=== PATIENT | male | born 1940 | race African-American/Black ===

== ENCOUNTER 2021-09-17 01:11 | Inpatient (IN) | payer MEDICARE, MEDICAID ==
[2021-09-17] VITALS (8 sets, daily range): BP systolic 125–150; BP diastolic 72–87
[~2021-09-17] VITALS: Ht 175.3 cm; Wt 95.4 kg
[~2021-09-17 01:11] MED LIST: ALLO100T PO; AMLO10TA80 PO; ASPI-1073 PO; CARV12.545 PO; COLC0.6T66 PO; ECOTRIN PO; FURO40TA5 PO; HYDRALAZINE PO; LOSA50TA41 PO; OMEP20CA14 PO; [UNRECOGNIZED DRUG - OTHER]; [UNRECOGNIZED DRUG - OTHER] INH
[2021-09-17] MEDS ORDERED: ASPIRIN 81MG TABLET PO ONE (03:00)
[2021-09-17 04:29] LABS: HEMATOCRIT. 32.1 % (42.0-52.0); HEMOGLOBIN. 10.8 g/dL (14.0-18.0); MEAN CORPUSCULAR HEMOGLOBIN 26.2 pg (28.0-32.0); MEAN CORPUSCULAR VOLUME 77.9 fL (80.0-94.0); MEAN PLATELET VOLUME 11.1 fl (7.4-10.4); PLATELET 130 x1000/uL (130-400); RED BLOOD CELL COUNT 4.11 mill/uL (4.7-6.1); RED CELL DISTRIBUTION WIDTH 16.4 % (11.6-14.6)
[2021-09-17 04:44] LABS: CHLORIDE 100 mEq/L (98-107)
[2021-09-17 04:57] LABS: CREATINE KINASE 261 IU/L (39-308)
[2021-09-17] MEDS ORDERED: PIPERACILLIN/TAZOBACTAM 3.375GM/50ML PREMIX IV SCH (05:45)
[2021-09-17] MEDS ORDERED: VANCOMYCIN 1,000 MG in DEXT 5% WATER 250 ML IV SCH (06:00)
[2021-09-17] MEDS: FUROSEMIDE 40MG/4ML VIAL IVP SCH (06:00)
[2021-09-17 07:14] LABS: PLATELET ESTIMATE NORMAL
[2021-09-17 08:21] LABS: CLARITY URINE CLEAR (CLEAR); COLOR URINE DARK YELLOW (YELLOW); KETONES URINE TRACE (NEGATIVE); LEUKOCYTE ESTERASE URINE 1+ (NEGATIVE); NITRITE URINE NEGATIVE (NEGATIVE); OCCULT BLOOD URINE NEGATIVE (NEGATIVE); PROTEIN URINE 1+ (NEGATIVE)
[2021-09-17] MEDS ORDERED: DIPHENHYDRAMINE 50MG/ML VIAL IV PRN (14:00)
[2021-09-17] MEDS ORDERED: LORAZEPAM 0.5MG TABLET PO PRN (14:00)
[2021-09-17] MEDS ORDERED: ONDANSETRON HCL 4MG/2ML INJ IV PRN (14:00)
[2021-09-17] MEDS ORDERED: NALOXONE HCL 0.4MG/ML VIAL IV PRN (14:00)
[2021-09-17] MEDS ORDERED: PIPERACILLIN/TAZ 3.375G PREMIX 50 ML IV NR (14:00)
[2021-09-17] MEDS ORDERED: ACETAMINOPHEN 650MG SUPP PR PRN (14:00)
[2021-09-17] MEDS ORDERED: MAGNESIUM/ALUMINUM HYDROXIDE/SIMETHICONE 30ML UDC PO PRN (14:00)
[2021-09-17] MEDS ORDERED: HYDROCODONE/ACETAMINOPHEN 5/325MG TABLET PO PRN (14:00)
[2021-09-17] MEDS ORDERED: NA PHOS,M-B/NA PHOS,DI-BA ENEMA 118ML PR PRN (14:00)
[2021-09-17] MEDS ORDERED: DILTIAZEM HCL 5MG/ML 5ML VIAL IV NR (14:00)
[2021-09-17] MEDS ORDERED: DILTIAZEM HCL 125 MG in DEXT 5% WATER 100 ML IV PRN (14:00)
[2021-09-17] MEDS ORDERED: MORPHINE SULFATE 2 MG/ML CPJ (NOT FOR IM USE) IV PRN (14:00)
[2021-09-17] MEDS ORDERED: GUAIFENESIN 200MG/10ML SUGAR FREE UDC PO PRN (14:00)
[2021-09-17] MEDS ORDERED: IPRATROPIUM/ALBUTEROL 0.5-3(2.5)MG/3ML NEB NEB PRN (14:00)
[2021-09-17] MEDS: DILTIAZEM 125MG/125ML PMX 125 ML IV SCH (14:15)
[2021-09-17] MEDS: DEXT 5%/0.9% NACL 1,000 ML IV SCH (14:56)
[2021-09-17] MEDS ORDERED: VANCOMYCIN 1GM PMX (XELLIA) 200 ML IV NR (15:00)
[2021-09-17] MEDS: ENOXAPARIN 120MG/0.8ML SYR SUBCUT SCH (15:14)
[2021-09-17] MEDS: PIPERACILLIN/TAZOBACTAM 3.375 G in DEXTROSE 5% WATER 50 ML IV SCH (16:20)
[2021-09-17] MEDS ORDERED: ALLOPURINOL 100 MG TABLET PO SCH (17:00)
[2021-09-17] MEDS ORDERED: DILTIAZEM HCL 30MG TABLET PO NR (19:15)
[2021-09-17] MEDS ORDERED: DIGOXIN 500MCG/2ML AMP IV NR (19:25)
[2021-09-17] MEDS: ACETAMINOPHEN 325MG TABLET PO PRN (19:59)
[2021-09-17 21:32] LABS: INR 1.2; PROTHROMBIN TIME 12.9 sec (9.6-11.0)
[2021-09-17 21:45] LABS: CREATINE KINASE MB FRACTION 1.9 ng/mL (0.5-3.6)
[2021-09-17] MEDS ORDERED: PIPERACILLIN/TAZOBACTAM 3.375 G in DEXTROSE 5% WATER 50 ML IV SCH (22:00)
[2021-09-17] MEDS: DILTIAZEM HCL 30MG TABLET PO SCH (22:32)
[2021-09-17] MEDS: ALLOPURINOL 100 MG TABLET PO SCH (22:32)
[2021-09-18] VITALS (11 sets, daily range): BP systolic 123–183; BP diastolic 67–110
[2021-09-18] MEDS: PIPERACILLIN/TAZOBACTAM 3.375 G in DEXTROSE 5% WATER 50 ML IV SCH ×4 (01:18→21:42)
[2021-09-18 02:50] LABS: *AMPHETAMINES SCREEN URINE NEGATIVE (NEGATIVE); *BARBITURATES SCREEN URINE NEGATIVE (NEGATIVE); *BENZODIAZEPINES SCREEN URINE NEGATIVE (NEGATIVE)
[2021-09-18 02:51] LABS: *COCAINE SCREEN URINE NEGATIVE (NEGATIVE); CANNABINOID URINE SCREEN NEGATIVE (NEGATIVE); METHADONE URINE SCREEN NEGATIVE (NEGATIVE); OPIATES URINE SCREEN PRESUMTIVE POSITIVE (NEGATIVE); PHENCYCLIDINE URINE SCREEN NEGATIVE (NEGATIVE)
[2021-09-18] MEDS: DEXT 5%/0.9% NACL 1,000 ML IV SCH (04:38)
[2021-09-18] MEDS: DILTIAZEM 125MG/125ML PMX 125 ML IV SCH (04:56)
[2021-09-18] MEDS: DILTIAZEM HCL 30MG TABLET PO SCH ×3 (06:56→21:43)
[2021-09-18] MEDS ORDERED: VANCOMYCIN 1.25GM PMX (XELLIA) 250 ML IV SCH (08:00)
[2021-09-18] MEDS: ALLOPURINOL 100 MG TABLET PO SCH ×2 (08:29→20:08)
[2021-09-18] MEDS: FUROSEMIDE 40MG/4ML VIAL IVP SCH (08:29)
[2021-09-18] MEDS: ASPIRIN 81MG EC TABLET PO SCH (08:30)
[2021-09-18] MEDS ORDERED: ASPIRIN 81MG EC TABLET PO SCH (09:00)
[2021-09-18 09:13] LABS: BASOPHILS % 0.6 % (0.0-2.0); EOSINOPHILS % 1.5 % (0.0-5.0); HEMATOCRIT. 31.3 % (42.0-52.0); HEMOGLOBIN. 10.5 g/dL (14.0-18.0); LYMPHOCYTES % 8.1 % (20.0-50.0); MEAN CORPUSCULAR VOLUME 77.5 fL (80.0-94.0); MEAN PLATELET VOLUME 10.6 fl (7.4-10.4); MONOCYTES % 6.9 % (2.0-8.0); NEUTROPHILS % 82.9 % (40.0-76.0); PLATELET 174 x1000/uL (130-400); RED BLOOD CELL COUNT 4.03 mill/uL (4.7-6.1); RED CELL DISTRIBUTION WIDTH 16.1 % (11.6-14.6)
[2021-09-18 09:14] LABS: INR 1.2; PROTHROMBIN TIME 12.4 sec (9.6-11.0)
[2021-09-18 09:22] LABS: CHLORIDE 102 mEq/L (98-107)
[2021-09-18 09:38] LABS: CREATINE KINASE 265 IU/L (39-308)
[2021-09-18 09:40] LABS: LDL CHOLESTEROL 38 mg/dL (5-100)
[2021-09-18 09:41] LABS: CREATINE KINASE MB FRACTION 1.6 ng/mL (0.5-3.6); HDL CHOLESTEROL 10 mg/dL (40-59)
[2021-09-18 11:29] LABS: BASOPHILS % 0.4 % (0.0-2.0); EOSINOPHILS % 1.7 % (0.0-5.0); HEMATOCRIT. 30.8 % (42.0-52.0); HEMOGLOBIN. 10.3 g/dL (14.0-18.0); LYMPHOCYTES % 7.7 % (20.0-50.0); MEAN CORPUSCULAR HEMOGLOBIN 25.6 pg (28.0-32.0); MEAN CORPUSCULAR VOLUME 76.8 fL (80.0-94.0); MEAN PLATELET VOLUME 10.1 fl (7.4-10.4); MONOCYTES % 6.5 % (2.0-8.0); NEUTROPHILS % 83.7 % (40.0-76.0); PLATELET 200 x1000/uL (130-400); RED BLOOD CELL COUNT 4.01 mill/uL (4.7-6.1)
[2021-09-18 11:48] LABS: CHLORIDE 101 mEq/L (98-107)
[2021-09-18] MEDS: ACETAMINOPHEN 325MG TABLET PO PRN (12:48)
[2021-09-18] MEDS ORDERED: POTASSIUM CHLORIDE 20MEQ TABLET SR PO NR (13:15)
[2021-09-18 13:34] LABS: BG BASE EXCESS 2.7 mmol/L (-2.0-2.0); BG CARBOXYHEMOGLOBIN 0.1 % (0.5-1.5); BG FRACTION INSPIRED OXYGEN 21; BG HCO3 ACT 25.4 mmol/L (22.0-26.0); BG METHEMOGLOBIN 0.2 % (0.0-1.5); BG OXYHEMOGLOBIN 93.7 % (94.0-97.0); BG PCO2 32.6 mmHg (35.0-45.0); BG PO2 66.2 mmHg (75.0-100.0); BG TOTAL HEMOGLOBIN 11.4 g/dL (12.0-18.0); BG VENT MODE ROOM AIR
[2021-09-18] MEDS: ENOXAPARIN 120MG/0.8ML SYR SUBCUT SCH (14:38)
[2021-09-18] MEDS ORDERED: CARVEDILOL 3.125 MG TABLET PO NR (15:00)
[2021-09-18] MEDS: ENOXAPARIN 100MG/ML SYR SUBCUT SCH (17:49)
[2021-09-18] MEDS: LOSARTAN POTASSIUM 25 MG TABLET PO SCH (18:07)
[2021-09-18] MEDS: CARVEDILOL 3.125 MG TABLET PO SCH (20:09)
[2021-09-18] MEDS ORDERED: VANCOMYCIN 1GM PMX (XELLIA) 200 ML IV NR (21:00)
[2021-09-19] VITALS (13 sets, daily range): BP systolic 112–168; BP diastolic 61–122
[2021-09-19] MEDS: PIPERACILLIN/TAZOBACTAM 3.375 G in DEXTROSE 5% WATER 50 ML IV SCH ×3 (05:33→21:11)
[2021-09-19] MEDS: ENOXAPARIN 100MG/ML SYR SUBCUT SCH ×2 (05:34→17:27)
[2021-09-19] MEDS: DILTIAZEM HCL 30MG TABLET PO SCH ×3 (05:35→21:10)
[2021-09-19 06:27] LABS: HEMATOCRIT. 30.2 % (42.0-52.0); HEMOGLOBIN. 10.1 g/dL (14.0-18.0); MEAN CORPUSCULAR HEMOGLOBIN 25.5 pg (28.0-32.0); MEAN PLATELET VOLUME 9.6 fl (7.4-10.4); PLATELET 231 x1000/uL (130-400); RED BLOOD CELL COUNT 3.97 mill/uL (4.7-6.1); RED CELL DISTRIBUTION WIDTH 16.2 % (11.6-14.6)
[2021-09-19] MEDS: ASPIRIN 81MG EC TABLET PO SCH (08:54)
[2021-09-19] MEDS: LOSARTAN POTASSIUM 25 MG TABLET PO SCH (08:54)
[2021-09-19] MEDS: ALLOPURINOL 100 MG TABLET PO SCH ×2 (08:54→21:09)
[2021-09-19] MEDS: CARVEDILOL 3.125 MG TABLET PO SCH (08:56)
[2021-09-19] MEDS: FUROSEMIDE 40MG/4ML VIAL IVP SCH (08:57)
[2021-09-19] MEDS ORDERED: POTASSIUM CHLORIDE 20MEQ TABLET SR PO SCH (10:15)
[2021-09-19] MEDS: VANCOMYCIN 1GM PMX (XELLIA) 200 ML IV SCH (13:47)
[2021-09-19] MEDS ORDERED: CARVEDILOL 3.125 MG TABLET PO NR (15:30)
[2021-09-19 20:25] LABS: PLATELET ESTIMATE NORMAL
[2021-09-19] MEDS: ACETAMINOPHEN 325MG TABLET PO PRN (21:09)
[2021-09-19] MEDS: CARVEDILOL 6.25 MG TABLET PO SCH (21:10)
[2021-09-20] VITALS (11 sets, daily range): BP systolic 127–164; BP diastolic 77–100
[2021-09-20] MEDS: PIPERACILLIN/TAZOBACTAM 3.375 G in DEXTROSE 5% WATER 50 ML IV SCH ×3 (05:01→22:46)
[2021-09-20] MEDS: ENOXAPARIN 100MG/ML SYR SUBCUT SCH ×2 (05:01→18:47)
[2021-09-20] MEDS: DILTIAZEM HCL 30MG TABLET PO SCH ×3 (05:02→21:50)
[2021-09-20 06:02] LABS: HEMOGLOBIN. 10.8 g/dL (14.0-18.0); MEAN CORPUSCULAR HEMOGLOBIN 25.6 pg (28.0-32.0); MEAN CORPUSCULAR VOLUME 75.8 fL (80.0-94.0); MEAN PLATELET VOLUME 9.4 fl (7.4-10.4); PLATELET 271 x1000/uL (130-400); RED BLOOD CELL COUNT 4.23 mill/uL (4.7-6.1); RED CELL DISTRIBUTION WIDTH 16.4 % (11.6-14.6)
[2021-09-20] MEDS: ALLOPURINOL 100 MG TABLET PO SCH ×2 (08:46→21:17)
[2021-09-20] MEDS: LOSARTAN POTASSIUM 25 MG TABLET PO SCH (08:46)
[2021-09-20] MEDS: ASPIRIN 81MG EC TABLET PO SCH (08:46)
[2021-09-20] MEDS: FUROSEMIDE 40MG/4ML VIAL IVP SCH (08:46)
[2021-09-20] MEDS: CARVEDILOL 6.25 MG TABLET PO SCH ×2 (08:46→21:17)
[2021-09-20] MEDS: VANCOMYCIN 1GM PMX (XELLIA) 200 ML IV SCH (08:46)
[2021-09-20 16:48] LABS: PLATELET ESTIMATE NORMAL
[2021-09-21] VITALS: BP 130/66
[2021-09-21] MEDS: VANCOMYCIN 1GM PMX (XELLIA) 200 ML IV SCH ×2 (01:52→20:55)
[2021-09-21 04:00] VITALS: BP 159/82
[2021-09-21] MEDS: PIPERACILLIN/TAZOBACTAM 3.375 G in DEXTROSE 5% WATER 50 ML IV SCH ×2 (06:07→16:06)
[2021-09-21] MEDS: DILTIAZEM HCL 30MG TABLET PO SCH ×3 (06:08→22:20)
[2021-09-21] MEDS: ENOXAPARIN 100MG/ML SYR SUBCUT SCH (06:10)
[2021-09-21 08:00] VITALS: BP 149/87
[2021-09-21] MEDS: FUROSEMIDE 40MG/4ML VIAL IVP SCH (11:01)
[2021-09-21] MEDS: ASPIRIN 81MG EC TABLET PO SCH (11:01)
[2021-09-21] MEDS: CARVEDILOL 6.25 MG TABLET PO SCH ×2 (11:01→20:35)
[2021-09-21] MEDS: LOSARTAN POTASSIUM 25 MG TABLET PO SCH (11:01)
[2021-09-21] MEDS: ALLOPURINOL 100 MG TABLET PO SCH ×2 (11:02→20:55)
[2021-09-21 12:00] VITALS: BP 149/72
[2021-09-21 12:38] LABS: BASOPHILS % 0.5 % (0.0-2.0); EOSINOPHILS % 1.2 % (0.0-5.0); HEMATOCRIT. 30.2 % (42.0-52.0); HEMOGLOBIN. 10.1 g/dL (14.0-18.0); LYMPHOCYTES % 11.2 % (20.0-50.0); MEAN CORPUSCULAR HEMOGLOBIN 25.4 pg (28.0-32.0); MEAN CORPUSCULAR VOLUME 76.4 fL (80.0-94.0); MEAN PLATELET VOLUME 9.3 fl (7.4-10.4); MONOCYTES % 8.7 % (2.0-8.0); NEUTROPHILS % 78.4 % (40.0-76.0); PLATELET 298 x1000/uL (130-400); RED BLOOD CELL COUNT 3.95 mill/uL (4.7-6.1)
[2021-09-21 16:00] VITALS: BP 140/50
[2021-09-21 20:00] VITALS: BP 149/79
[2021-09-21] MEDS: CEFTRIAXONE 1,000 MG in DEXTROSE 5% WATER 50 ML IV SCH (22:21)
[2021-09-22] VITALS (43 sets, daily range): BP systolic 83–185; BP diastolic 44–102
[2021-09-22] MEDS: DILTIAZEM HCL 30MG TABLET PO SCH ×3 (06:00→21:18)
[2021-09-22 06:13] LABS: HEMATOCRIT. 31.9 % (42.0-52.0); HEMOGLOBIN. 10.9 g/dL (14.0-18.0); MEAN CORPUSCULAR HEMOGLOBIN 25.9 pg (28.0-32.0); MEAN PLATELET VOLUME 9.4 fl (7.4-10.4); PLATELET 336 x1000/uL (130-400); RED CELL DISTRIBUTION WIDTH 15.9 % (11.6-14.6)
[2021-09-22] MEDS: HYDRALAZINE 20MG/ML VIAL IV PRN (06:14)
[2021-09-22] MEDS: FUROSEMIDE 40MG/4ML VIAL IVP SCH (08:20)
[2021-09-22] MEDS: CARVEDILOL 6.25 MG TABLET PO SCH ×2 (08:20→21:20)
[2021-09-22] MEDS: LOSARTAN POTASSIUM 25 MG TABLET PO SCH (08:20)
[2021-09-22] MEDS ORDERED: GENTAMICIN SULF 40MG/ML 2ML VIAL ONE (09:00)
[2021-09-22] MEDS ORDERED: BACITRACIN 15GM TUBE TOP ONE (09:01)
[2021-09-22] MEDS ORDERED: THROMBIN (BOVINE) 5000 UNITS/VIAL TOP ONE (09:01)
[2021-09-22] MEDS ORDERED: LIDOCAINE HCL/EPINEPHRINE 1%-EPI 1:100,000 30 ML VIAL INFIL ONE (09:01)
[2021-09-22] MEDS ORDERED: ALBUMIN HUMAN 25GM/100ML (25%) IV ONE (10:57)
[2021-09-22] MEDS ORDERED: HYDROMORPHONE HCL/PF 2MG/ML (OR) ONE (11:21)
[2021-09-22] MEDS ORDERED: HYDRALAZINE 20MG/ML VIAL ONE ×2 (11:23→12:28)
[2021-09-22] MEDS ORDERED: DEXAMETHASONE 4MG/ML 1ML VIAL ONE (11:39)
[2021-09-22] MEDS ORDERED: PROPOFOL 10MG/ML 100ML 100 ML IV ONE (12:02)
[2021-09-22] MEDS ORDERED: POTASSIUM CHLORIDE INJ 40 MEQ in DEXT 5% WATER 250 ML IV ONE (12:45)
[2021-09-22] MEDS: DEXT 5%/LACTATED RINGERS 1,000 ML IV SCH ×2 (12:45→21:20)
[2021-09-22] MEDS: PROPOFOL 10MG/ML 100ML 100 ML IV PRN ×2 (12:50→15:51)
[2021-09-22] MEDS: NICARDIPINE 100 MG in SODIUM CHLORIDE 0.9% 60 ML IV PRN (13:15)
[2021-09-22 13:34] LABS: BG BASE EXCESS -3.6 mmol/L (-2.0-2.0); BG CARBOXYHEMOGLOBIN 0.3 % (0.5-1.5); BG DEOXYHEMOGLOBIN 1.2 % (0.0-5.0); BG FRACTION INSPIRED OXYGEN 65; BG HCO3 ACT 20.8 mmol/L (22.0-26.0); BG METHEMOGLOBIN 0.3 % (0.0-1.5); BG OXYGEN SATURATION 98.8 % (92.0-98.5); BG OXYHEMOGLOBIN 98.2 % (94.0-97.0); BG PCO2 35.1 mmHg (35.0-45.0); BG PH 7.391 (7.350-7.450); BG PO2 203.8 mmHg (75.0-100.0); BG SAMPLE SITE ALINE; BG TOTAL HEMOGLOBIN 10.2 g/dL (12.0-18.0); BG VENT MODE VENT - AC
[2021-09-22] MEDS: KCL 20MEQ/100ML X 2 FOR TOTAL KCL 40MEQ/200ML IV SCH ×2 (13:56→15:50)
[2021-09-22] MEDS: VANCOMYCIN 1GM PMX (XELLIA) 200 ML IV SCH (14:00)
[2021-09-22 14:57] LABS: NUCLEATED RED BLOOD CELLS 1 /100 WBC
[2021-09-22 14:58] LABS: PLATELET ESTIMATE NORMAL
[2021-09-22] MEDS: DEXAMETHASONE 4MG/ML 1ML VIAL IV SCH ×2 (18:04→23:01)
[2021-09-22] MEDS: CEFTRIAXONE 1,000 MG in DEXTROSE 5% WATER 50 ML IV SCH (22:23)
[2021-09-23] VITALS (100 sets, daily range): BP systolic 72–174; BP diastolic 41–117
[2021-09-23] MEDS: DEXAMETHASONE 4MG/ML 1ML VIAL IV SCH ×2 (05:13→13:50)
[2021-09-23] MEDS: DILTIAZEM HCL 30MG TABLET PO SCH ×3 (05:14→22:10)
[2021-09-23] MEDS: PROPOFOL 10MG/ML 100ML 100 ML IV PRN (05:16)
[2021-09-23] MEDS: NICARDIPINE 100 MG in SODIUM CHLORIDE 0.9% 60 ML IV PRN (05:17)
[2021-09-23] MEDS: DEXT 5%/LACTATED RINGERS 1,000 ML IV SCH ×2 (05:18→17:08)
[2021-09-23 05:41] LABS: MEAN CORPUSCULAR VOLUME 77.8 fL (80.0-94.0); MEAN PLATELET VOLUME 9.6 fl (7.4-10.4); PLATELET 306 x1000/uL (130-400); RED BLOOD CELL COUNT 3.99 mill/uL (4.7-6.1); RED CELL DISTRIBUTION WIDTH 16.4 % (11.6-14.6)
[2021-09-23 06:12] LABS: CHLORIDE 104 mEq/L (98-107)
[2021-09-23 08:29] LABS: BG BASE EXCESS -0.6 mmol/L (-2.0-2.0); BG DEOXYHEMOGLOBIN 2.6 % (0.0-5.0); BG HCO3 ACT 22.4 mmol/L (22.0-26.0); BG METHEMOGLOBIN 0.3 % (0.0-1.5); BG OXYGEN SATURATION 97.4 % (92.0-98.5); BG OXYHEMOGLOBIN 97.1 % (94.0-97.0); BG PCO2 31.4 mmHg (35.0-45.0); BG PH 7.471 (7.350-7.450); BG PO2 94.3 mmHg (75.0-100.0); BG SAMPLE SITE ALINE; BG TOTAL HEMOGLOBIN 11.1 g/dL (12.0-18.0); BG VENT MODE VENT - AC
[2021-09-23] MEDS: CARVEDILOL 6.25 MG TABLET PO SCH ×2 (09:06→21:27)
[2021-09-23] MEDS: FUROSEMIDE 40MG/4ML VIAL IVP SCH (09:06)
[2021-09-23] MEDS: LOSARTAN POTASSIUM 25 MG TABLET PO SCH (09:08)
[2021-09-23] MEDS: VANCOMYCIN 1GM PMX (XELLIA) 200 ML IV SCH (09:52)
[2021-09-23] MEDS ORDERED: PROPOFOL 10MG/ML 100ML 100 ML IV PRN (13:00)
[2021-09-23 16:16] LABS: PLATELET ESTIMATE NORMAL
[2021-09-23] MEDS: CEFTRIAXONE 1,000 MG in DEXTROSE 5% WATER 50 ML IV SCH (22:09)
[2021-09-24] VITALS (93 sets, daily range): BP systolic 76–156; BP diastolic 41–76
[2021-09-24] MEDS: DEXT 5%/LACTATED RINGERS 1,000 ML IV SCH ×3 (01:43→21:14)
[2021-09-24] MEDS: NICARDIPINE 100 MG in SODIUM CHLORIDE 0.9% 60 ML IV PRN ×3 (02:28→14:55)
[2021-09-24] MEDS: DILTIAZEM HCL 30MG TABLET PO SCH ×3 (06:00→22:00)
[2021-09-24 06:02] LABS: HEMATOCRIT. 30.2 % (42.0-52.0); HEMOGLOBIN. 9.9 g/dL (14.0-18.0); MEAN CORPUSCULAR HEMOGLOBIN 25.4 pg (28.0-32.0); MEAN CORPUSCULAR VOLUME 77.8 fL (80.0-94.0); MEAN PLATELET VOLUME 9.5 fl (7.4-10.4); PLATELET 383 x1000/uL (130-400); RED BLOOD CELL COUNT 3.89 mill/uL (4.7-6.1); RED CELL DISTRIBUTION WIDTH 16.3 % (11.6-14.6)
[2021-09-24 06:12] LABS: CHLORIDE 106 mEq/L (98-107)
[2021-09-24] MEDS: CARVEDILOL 6.25 MG TABLET PO SCH ×2 (08:58→21:15)
[2021-09-24] MEDS: LOSARTAN POTASSIUM 25 MG TABLET PO SCH (09:20)
[2021-09-24] MEDS: FUROSEMIDE 40MG/4ML VIAL IVP SCH (09:20)
[2021-09-24 09:53] LABS: BG BASE EXCESS -0.4 mmol/L (-2.0-2.0); BG CARBOXYHEMOGLOBIN 0.3 % (0.5-1.5); BG DEOXYHEMOGLOBIN 1.4 % (0.0-5.0); BG FRACTION INSPIRED OXYGEN 40; BG HCO3 ACT 22.4 mmol/L (22.0-26.0); BG METHEMOGLOBIN 0.4 % (0.0-1.5); BG OXYGEN SATURATION 98.6 % (92.0-98.5); BG OXYHEMOGLOBIN 97.9 % (94.0-97.0); BG PCO2 30.3 mmHg (35.0-45.0); BG PH 7.486 (7.350-7.450); BG PO2 120.4 mmHg (75.0-100.0); BG SAMPLE SITE ALINE; BG TOTAL HEMOGLOBIN 10.8 g/dL (12.0-18.0); BG VENT MODE VENT - CPAP
[2021-09-24] MEDS: VANCOMYCIN 1GM PMX (XELLIA) 200 ML IV SCH (10:48)
[2021-09-24 11:44] LABS: PLATELET ESTIMATE NORMAL
[2021-09-24] MEDS: HYDRALAZINE HCL 25MG TABLET NG SCH ×2 (13:12→21:22)
[2021-09-24] MEDS: HYDRALAZINE 20MG/ML VIAL IV PRN (13:12)
[2021-09-24 13:57] LABS: BG BASE EXCESS 0.6 mmol/L (-2.0-2.0); BG CARBOXYHEMOGLOBIN 0.6 % (0.5-1.5); BG DEOXYHEMOGLOBIN 2.3 % (0.0-5.0); BG FRACTION INSPIRED OXYGEN 28; BG METHEMOGLOBIN 0.1 % (0.0-1.5); BG OXYGEN SATURATION 97.7 % (92.0-98.5); BG PCO2 29.9 mmHg (35.0-45.0); BG PH 7.504 (7.350-7.450); BG PO2 117.3 mmHg (75.0-100.0); BG SAMPLE SITE LEFT RADIAL; BG TOTAL HEMOGLOBIN 11.4 g/dL (12.0-18.0); BG VENT MODE COOL AEROSOL
[2021-09-24] MEDS: LOSARTAN POTASSIUM 25 MG TABLET NG SCH (16:38)
[2021-09-24] MEDS: MORPHINE SULFATE 2 MG/ML CPJ (NOT FOR IM USE) IV PRN (18:29)
[2021-09-24] MEDS: CEFTRIAXONE 1,000 MG in DEXTROSE 5% WATER 50 ML IV SCH (21:17)
[2021-09-25] VITALS (97 sets, daily range): BP systolic 105–167; BP diastolic 52–79
[2021-09-25] MEDS: MORPHINE SULFATE 2 MG/ML CPJ (NOT FOR IM USE) IV PRN ×5 (00:59→22:40)
[2021-09-25] MEDS: NICARDIPINE 100 MG in SODIUM CHLORIDE 0.9% 60 ML IV PRN (03:33)
[2021-09-25] MEDS: HYDRALAZINE 20MG/ML VIAL IV PRN ×2 (03:35→17:57)
[2021-09-25] MEDS: VANCOMYCIN 1GM PMX (XELLIA) 200 ML IV SCH ×2 (04:58→22:00)
[2021-09-25] MEDS: HYDRALAZINE HCL 25MG TABLET NG SCH (05:00)
[2021-09-25] MEDS: DEXT 5%/LACTATED RINGERS 1,000 ML IV SCH ×2 (05:01→13:15)
[2021-09-25 05:27] LABS: CHLORIDE 107 mEq/L (98-107); HEMATOCRIT. 32.7 % (42.0-52.0); HEMOGLOBIN. 10.7 g/dL (14.0-18.0); MEAN CORPUSCULAR HEMOGLOBIN 25.3 pg (28.0-32.0); MEAN CORPUSCULAR VOLUME 77.5 fL (80.0-94.0); MEAN PLATELET VOLUME 8.7 fl (7.4-10.4); PLATELET 458 x1000/uL (130-400); RED BLOOD CELL COUNT 4.22 mill/uL (4.7-6.1); RED CELL DISTRIBUTION WIDTH 16.5 % (11.6-14.6)
[2021-09-25] MEDS: DILTIAZEM HCL 30MG TABLET PO SCH ×3 (06:00→21:59)
[2021-09-25 08:05] LABS: PLATELET ESTIMATE NORMAL
[2021-09-25] MEDS: CARVEDILOL 6.25 MG TABLET PO SCH ×2 (08:26→20:13)
[2021-09-25] MEDS: LOSARTAN POTASSIUM 25 MG TABLET NG SCH ×2 (08:26→16:51)
[2021-09-25] MEDS: FUROSEMIDE 40MG/4ML VIAL IVP SCH (08:26)
[2021-09-25 08:27] LABS: BG BASE EXCESS 1.2 mmol/L (-2.0-2.0); BG CARBOXYHEMOGLOBIN 0.4 % (0.5-1.5); BG DEOXYHEMOGLOBIN 5.5 % (0.0-5.0); BG HCO3 ACT 24.8 mmol/L (22.0-26.0); BG METHEMOGLOBIN 0.2 % (0.0-1.5); BG OXYGEN SATURATION 94.5 % (92.0-98.5); BG OXYHEMOGLOBIN 93.9 % (94.0-97.0); BG PCO2 35.8 mmHg (35.0-45.0); BG PH 7.459 (7.350-7.450); BG PO2 68.7 mmHg (75.0-100.0); BG SAMPLE SITE RIGHT RADIAL; BG TOTAL HEMOGLOBIN 11.6 g/dL (12.0-18.0); BG VENT MODE ROOM AIR
[2021-09-25] MEDS: HYDRALAZINE HCL 50MG TABLET NG SCH ×2 (13:15→21:09)
[2021-09-25] MEDS: CEFTRIAXONE 1,000 MG in DEXTROSE 5% WATER 50 ML IV SCH (21:09)
[2021-09-26] VITALS (83 sets, daily range): BP systolic 103–176; BP diastolic 53–87
[2021-09-26] MEDS: HYDRALAZINE 20MG/ML VIAL IV PRN ×2 (01:18→16:51)
[2021-09-26] MEDS: DEXT 5%/LACTATED RINGERS 1,000 ML IV SCH ×2 (02:24→15:40)
[2021-09-26] MEDS: DILTIAZEM HCL 30MG TABLET PO SCH ×4 (05:32→22:13)
[2021-09-26] MEDS: HYDRALAZINE HCL 50MG TABLET NG SCH ×3 (05:32→22:14)
[2021-09-26 05:52] LABS: BASOPHILS % 0.1 % (0.0-2.0); EOSINOPHILS % 0.5 % (0.0-5.0); HEMATOCRIT. 35.5 % (42.0-52.0); HEMOGLOBIN. 11.6 g/dL (14.0-18.0); LYMPHOCYTES % 7.9 % (20.0-50.0); MEAN CORPUSCULAR HEMOGLOBIN 25.4 pg (28.0-32.0); MEAN CORPUSCULAR VOLUME 78.1 fL (80.0-94.0); MEAN PLATELET VOLUME 8.5 fl (7.4-10.4); MONOCYTES % 10.3 % (2.0-8.0); NEUTROPHILS % 81.2 % (40.0-76.0); PLATELET 520 x1000/uL (130-400); RED BLOOD CELL COUNT 4.55 mill/uL (4.7-6.1); RED CELL DISTRIBUTION WIDTH 17.1 % (11.6-14.6)
[2021-09-26] MEDS: NICARDIPINE 100 MG in SODIUM CHLORIDE 0.9% 60 ML IV PRN (05:53)
[2021-09-26] MEDS: MORPHINE SULFATE 2 MG/ML CPJ (NOT FOR IM USE) IV PRN ×3 (05:56→19:42)
[2021-09-26 05:59] LABS: CHLORIDE 106 mEq/L (98-107)
[2021-09-26] MEDS: FUROSEMIDE 40MG/4ML VIAL IVP SCH (08:44)
[2021-09-26] MEDS: LOSARTAN POTASSIUM 25 MG TABLET NG SCH (08:44)
[2021-09-26] MEDS: CARVEDILOL 6.25 MG TABLET PO SCH (08:45)
[2021-09-26] MEDS ORDERED: HYDRALAZINE 20MG/ML VIAL IV SCH (12:00)
[2021-09-26] MEDS ORDERED: CLONIDINE HCL 0.2MG/24HR PATCH TD SCH (15:15)
[2021-09-26] MEDS: VANCOMYCIN 1GM PMX (XELLIA) 200 ML IV SCH (16:41)
[2021-09-26] MEDS: DOCUSATE SODIUM 100MG CAPSULE PO PRN (16:41)
[2021-09-26] MEDS: LOSARTAN POTASSIUM 50 MG TABLET NG SCH (16:42)
[2021-09-26] MEDS: CARVEDILOL 12.5MG TABLET PO SCH (20:07)
[2021-09-26] MEDS: CEFTRIAXONE 1,000 MG in DEXTROSE 5% WATER 50 ML IV SCH (22:13)
[2021-09-27 04:00] VITALS: BP 155/68
[2021-09-27] MEDS: HYDRALAZINE HCL 50MG TABLET NG SCH ×3 (06:39→20:11)
[2021-09-27] MEDS: DILTIAZEM HCL 30MG TABLET PO SCH ×2 (06:39→13:29)
[2021-09-27] MEDS: DEXT 5%/LACTATED RINGERS 1,000 ML IV SCH (06:40)
[2021-09-27 08:00] VITALS: BP_SYST 134; BP_SYST 168; BP_DIAS 71; BP_DIAS 81
[2021-09-27] MEDS: LOSARTAN POTASSIUM 50 MG TABLET NG SCH ×2 (08:13→17:49)
[2021-09-27] MEDS: FUROSEMIDE 40MG/4ML VIAL IVP SCH (08:13)
[2021-09-27] MEDS: CARVEDILOL 12.5MG TABLET PO SCH (08:13)
[2021-09-27 12:00] VITALS: BP 174/78
[2021-09-27] MEDS: HYDRALAZINE 20MG/ML VIAL IV PRN ×2 (14:58→20:26)
[2021-09-27 16:00] VITALS: BP 160/64
[2021-09-27 16:33] VITALS: BP 148/61
[2021-09-27 20:00] VITALS: BP 201/80
[2021-09-27] MEDS: ACETAMINOPHEN 325MG TABLET PO PRN (20:10)
[2021-09-27] MEDS ORDERED: CLONIDINE 0.2MG TABLET PO PRN (20:45)
[2021-09-27] MEDS ORDERED: MINOXIDIL 2.5MG TABLET PO NR (21:30)
[2021-09-28] VITALS: BP 155/64
[2021-09-28] MEDS ORDERED: HYDRALAZINE 20MG/ML VIAL IV PRN
[2021-09-28] MEDS: ACETAMINOPHEN 325MG TABLET PO PRN (03:56)
[2021-09-28 04:00] VITALS: BP 110/71
[2021-09-28] MEDS: HYDRALAZINE HCL 50MG TABLET NG SCH ×2 (05:55→13:57)
[2021-09-28 06:20] VITALS: BP 139/69
[2021-09-28 08:00] VITALS: BP 154/75
[2021-09-28] MEDS ORDERED: MINOXIDIL 2.5MG TABLET PO SCH (09:00)
[2021-09-28] MEDS: LOSARTAN POTASSIUM 50 MG TABLET NG SCH (09:40)
[2021-09-28] MEDS: FUROSEMIDE 40MG/4ML VIAL IVP SCH (09:40)
[2021-09-28] MEDS: DOCUSATE SODIUM 100MG CAPSULE PO PRN (10:50)
[2021-09-28 12:00] VITALS: BP 150/89
[2021-09-28] MEDS ORDERED: DILTIAZEM HCL 60MG TABLET PO SCH (14:00)
== END 2021-09-28 15:00 | DRG 853 ==
LOC: ER 01:11 → 6WST 09:07 → EDBEDREQ 09:18 → EDBEDREQTM 09:18 → ENRESERV 12:38 → 3WST 16:00 → 8WST 09-20 22:31 → MICUNO 09-22 11:06 → 5WST 09-26 21:19
PROVIDERS: ADMIT Internal Medicine; ATTEND Internal Medicine
PROC: 0RG2071 Fusion of 2 or more Cervical Vertebral Joints with Autologous Tissue Substitute, Posterior Approach, Posterior Column, Open Approach (ICD-10-PCS; principal; 2021-09-22)
PROC: 00NW0ZZ Release Cervical Spinal Cord, Open Approach (ICD-10-PCS; 2021-09-22)
PROC: 4A11X4G Monitoring of Peripheral Nervous Electrical Activity, Intraoperative, External Approach (ICD-10-PCS; 2021-09-22)
PROC: 01N10ZZ Release Cervical Nerve, Open Approach (ICD-10-PCS; 2021-09-22)
PROC: 5A1945Z Respiratory Ventilation, 24-96 Consecutive Hours (ICD-10-PCS; 2021-09-22)
DX: A41.9 Sepsis, unspecified organism (principal); G82.50 Quadriplegia, unspecified; I50.33 Acute on chronic diastolic (congestive) heart failure; I21.4 Non-ST elevation (NSTEMI) myocardial infarction; J96.00 Acute respiratory failure, unspecified whether with hypoxia or hypercapnia; N39.0 Urinary tract infection, site not specified; D68.59 Other primary thrombophilia; L03.113 Cellulitis of right upper limb; I13.0 Hypertensive heart and chronic kidney disease with heart failure and stage 1 through stage 4 chronic kidney disease, or unspecified chronic kidney disease; I31.3 Pericardial effusion (noninflammatory); G99.2 Myelopathy in diseases classified elsewhere; E87.2 Acidosis; N18.9 Chronic kidney disease, unspecified; B96.89 Other specified bacterial agents as the cause of diseases classified elsewhere; D64.9 Anemia, unspecified; I27.20 Pulmonary hypertension, unspecified; M10.9 Gout, unspecified; M19.019 Primary osteoarthritis, unspecified shoulder; M48.02 Spinal stenosis, cervical region; M48.061 Spinal stenosis, lumbar region without neurogenic claudication; I48.0 Paroxysmal atrial fibrillation; Z20.822 Contact with and (suspected) exposure to COVID-19; E78.5 Hyperlipidemia, unspecified; M43.12 Spondylolisthesis, cervical region; R73.9 Hyperglycemia, unspecified; R65.20 Severe sepsis without septic shock; M19.90 Unspecified osteoarthritis, unspecified site; Z87.891 Personal history of nicotine dependence; Z85.46 Personal history of malignant neoplasm of prostate; Z88.8 Allergy status to other drugs, medicaments and biological substances; Z79.899 Other long term (current) drug therapy; Z79.82 Long term (current) use of aspirin; Z79.84 Long term (current) use of oral hypoglycemic drugs; Z90.49 Acquired absence of other specified parts of digestive tract; R53.1 Weakness; J43.9 Emphysema, unspecified; R91.1 Solitary pulmonary nodule
CPT/HCPCS: 36415; 36600; 70551; 71045; 72040; 72141; 72148; 73090; 73130; 73200; 74018; 76000; 76700; 80048; 80053; 80061; 80202; 80305; 81003; 82375; 82550; 82553; 82805; 83605; 83735; 83880; 84145; 84153; 84439; 84443; 84478; 84484; 84550; 85025; 86850; 86900; 87077; 87426; 88304; 88311; 92610; 93005; 93306; 93970; 93971; 97110; 97162; 97164; 97530; 99291; C1713; J0360; J0696; J1100; J1160; J1170; J1580; J1650; J1940; J2270; J2543; J2704; J3370; J3480; J3490; J7050; J7060; J7121; L0172; P9047; A4315; G0103